=== PATIENT | female | born 1960 | race Caucasian/White ===

== ENCOUNTER 2017-04-30 14:06 | Emergency (ER) | payer SELFPAY ==
[~2017-04-30] VITALS: Ht 160 cm; Wt 79.5 kg
[2017-04-30] MEDS ORDERED: ALEV220T26 PO (14:16)
[2017-04-30] MEDS ORDERED: LISI-542 PO (14:16)
[2017-04-30] MEDS ORDERED: methylPREDNISolone INJ 125 MG/2 ML VIAL (J2930) IM ONE (15:30)
[2017-04-30] MEDS ORDERED: ALBUTEROL SULFATE 2.5 MG/0.5 ML INH NEB SOLN NEB ONE (15:30)
[2017-04-30] MEDS ORDERED: DOXYCYCLINE HYCLATE 100 MG TAB PO ONE (15:30)
[2017-04-30] MEDS ORDERED: PRED20TA PO (16:41)
[2017-04-30] MEDS ORDERED: CIPR-249 PO (16:41)
[2017-04-30 16:49] VITALS: BP 163/92
--- NOTE | 2017-05-02 07:24 | REP ---
PA and lateral chest: There are no comparisons. The lung silver are clear. The cardiac size is normal The mayco, mediastinum, and bony thorax are unremarkable. Impression: Negative PA and lateral chest. Signed by David Driver MD 04/30/2017 03:41 P
== END 2017-04-30 16:50 | disposition home or self-care (01) ==
LOC: M ED 14:06
DX: J44.1 Chronic obstructive pulmonary disease with (acute) exacerbation (principal); J01.00 Acute maxillary sinusitis, unspecified; I10 Essential (primary) hypertension; M79.7 Fibromyalgia; M06.9 Rheumatoid arthritis, unspecified; B19.20 Unspecified viral hepatitis C without hepatic coma; Z79.899 Other long term (current) drug therapy; Z88.0 Allergy status to penicillin; Z87.891 Personal history of nicotine dependence
CPT/HCPCS: 71020; 94640; 96372; 99283; J2930